=== PATIENT | male | born 1950 | race Caucasian/White ===

== ENCOUNTER 2019-06-17 06:07 | Inpatient (IN) ==
--- NOTE | 2019-05-18 13:22 | PAT Medication Instructions ---
Medication Instructions Date of Service May 18, 2019 Home Medications Metformin 1 tab PO TID Tradjenta 1 tab PO QPM ascorbic acid (vitamin C) [Vitamin C] 1 g PO QAM atorvastatin [Lipitor] 40 mg PO QAM bisoprolol fumarate 7.5 mg PO BID cholecalciferol (vitamin D3) [Vitamin D3] 400 unit PO QAM coQ10 (ubiquinol) 200 mg PO QAM glucos sul [id number] [Glucosamine Chondroitin] 1 cap PO QAM ibuprofen [Advil] 600 mg PO TID PRN magnesium 250 mg PO QAM tamsulosin 0.4 mg PO BID tramadol 50 mg PO BID PRN vitamin E 400 unit PO QAM ASK your surgeon for instructions ibuprofen [Advil] 600 mg PO TID PRN STOP taking 2 weeks before surgery (or as soon as possible if surgery is within 2 weeks) coQ10 (ubiquinol) 200 mg PO QAM glucos sul [id number]-Mn [Glucosamine Chondroitin] 1 cap PO QAM vitamin E 400 unit PO QAM DO NOT take the morning of surgery Metformin 1 tab PO TID ascorbic acid (vitamin C) [Vitamin C] 1 g PO QAM cholecalciferol (vitamin D3) [Vitamin D3] 400 unit PO QAM magnesium 250 mg PO QAM Take morning of surgery With a small sip of water, OTHERWISE NOTHING TO EAT OR DRINK AFTER MIDNIGHT: atorvastatin [Lipitor] 40 mg PO QAM bisoprolol fumarate 7.5 mg PO BID tamsulosin 0.4 mg PO BID tramadol 50 mg PO BID PRN (okay to take up to 4 hours prior to surgery if needed) Take evening before surgery Metformin 1 tab PO TID Tradjenta 1 tab PO QPM bisoprolol fumarate 7.5 mg PO BID tamsulosin 0.4 mg PO BID tramadol 50 mg PO BID PRN (if needed) Other Notes If you have any questions please call us at [phone] or [phone] or [phone] or [phone]
--- NOTE | 2019-05-19 11:29 | Anesthesiology Consultation ---
Date of Service May 19, 2019 Assessment & Plan (1) Encounter for pre-operative examination: PCP clearance 06/09/2019: "EKG reviewed. No significant change from thousand 15. Last echo 10/2014 was good. Stress importance of BS control before and after surgery. ... Patient is cleared for upcoming procedure." Chart Review Chart Review: Acceptable Risk for Surgery and Patient seen in Pre Admission Testing Teaching & Discussion Instructed NPO after midnight before surgery, except medications with 15 cc of water. Medication instructions provided according to the PAT guidelines. History Surgery Operation Date: 06/17/19 10:50 Proposed Procedures p Left Total Knee Arthroplasty - Aram Rock DO Height/Weight Height: 5 ft 10 in Weight: 97.9 kg Allergies Allergy/AdvReac Type Severity Reaction Status Date / Time bee venom protein (honey bee) Allergy Intermediate WATERING Verified 05/11/19 11:05 EYES Penicillins AdvReac Unknown Vomiting Verified 05/11/19 11:05 Medications Home Medications Medication Instructions Recorded Confirmed Last Taken Tradjenta 1 tab PO QPM 05/11/19 05/11/19 Unknown ascorbic acid (vitamin C) [Vitamin 1 g PO QAM 05/11/19 05/11/19 Unknown C] atorvastatin [Lipitor] 40 mg PO QAM 05/11/19 05/11/19 Unknown bisoprolol fumarate 7.5 mg PO BID 05/11/19 05/11/19 Unknown cholecalciferol (vitamin D3) 400 unit PO QAM 05/11/19 05/11/19 Unknown [Vitamin D3] coQ10 (ubiquinol) 100 mg PO QAM 05/11/19 05/19/19 Unknown glucos sul [id number]-Mn 1 cap PO QAM 05/11/19 05/11/19 Unknown [Glucosamine Chondroitin] ibuprofen [Advil] 600 mg PO TID PRN 05/11/19 05/11/19 Unknown magnesium 250 mg PO QAM 05/11/19 05/11/19 Unknown tamsulosin 0.4 mg PO BID 05/11/19 05/11/19 Unknown tramadol 50 mg PO BID PRN 05/11/19 05/11/19 Unknown vitamin E 400 unit PO QAM 05/11/19 05/11/19 Unknown metformin 500 mg PO TID 05/19/19 05/19/19 05/19/19 Past Medical History Medical History Arthritis Bowel obstruction HX X 3 BPH (benign prostatic hyperplasia) Cancer BLADDER. S/P TURBT, last few cystos have been clear per pt. Diabetes mellitus, type 2 History of abdominal aortic aneurysm (AAA) S/P repair ~ 9 yrs ago Stomach ulcer HX Tachycardia Baseline in low 100's, patient asymptomatic. Exercise / Class Metabolic Activity II 4-5 Yardwork/Stairs/Walk up hill (Limited by knee pain, but denies CP or SOB with 1 FOS, lifts weights occ) Past Surgical History Surgical History Fusion of spine X 3-LOWER BACK History of appendectomy History of arthroscopy R/L KNEES History of cholecystectomy History of colonoscopy History of cystoscopy WITH CAUTERIZATION History of detached retina repair R/L History of esophagogastroduodenoscopy (EGD) History of herniorrhaphy X 2 History of repair of rotator cuff R/L S/P AAA (abdominal aortic aneurysm) repair [facility] 8 YRS AGO Past Anesthesia History No Hx of Anesthesia Complications and No Family Hx of Anesthesia Complications History of PONV No Hx of PONV and No Hx of Motion Sickness Social History Smoking Status: Current every day smoker tobacco type: cigarettes Smoking cigarettes per day: 10 CIGS A DAY Do You Dip or Chew Tobacco: No Hx Alcohol Use: Yes Alcohol type: hard liquor alcohol intake frequency: a few times a month Hx Substance Use: No Review of Systems Pt denies any recent chest pain, shortness of breath, palpitations, cough, fever or URI. +abdominal pain/soreness from recent bowel obstruction (seen in ED 05/15, no surgical intervention needed). Physical Exam Vital Signs BP: 104/64 P: 102bpm SPO2: 99% RA T: 97.6 F R: 16 ENMT Mouth: + dental restorations (most teeth are implants a few bridges and very few cachil dehe teeth); no chipped teeth and no loose teeth Thyromental Distance: < 3.5 Finger Breadths (3) Mallampati Class: II Neck normal visual inspection and + facial hair (short goatee); neck extension not limited Respiratory normal respiratory effort Auscultation: lungs clear to auscultation bilaterally Cardiovascular Rate/Rhythm: regular rhythm and + tachycardic Heart Sounds: no murmur Vessels: no carotid bruit Extremities: no edema Testing Laboratory Results Hemoglobin A1c 7.4 % (4.5-5.6) H 05/19/19 11:49 Urine Color Dark Yellow 05/19/19 Unknown Urine Appearance Clear (Clear) 05/19/19 Unknown Urine pH 5.5 (4.5-7.5) 05/19/19 Unknown Ur Specific [place] 1.018 (1.000-1.030) 05/19/19 Unknown Urine Protein Negative (Negative) 05/19/19 Unknown Urine Glucose (UA) Negative (Negative) 05/19/19 Unknown Urine Ketones Negative (Negative) 05/19/19 Unknown Urine Nitrite Negative (Negative) 05/19/19 Unknown Ur Leukocyte Esterase Trace (Negative) H 05/19/19 Unknown Urine WBC (Auto) 5-10 /hpf (0-5) H 05/19/19 Unknown Urine RBC (Auto) 5-10 /hpf (0-4) H 05/19/19 Unknown U Hyaline Cast (Auto) 1-5 /lpf (0-5) 05/19/19 Unknown U Epithel Cells (Auto) 5-10 /lpf (0-5) H 05/19/19 Unknown Urine Bacteria (Auto) Negative (Negative) 05/19/19 Unknown Blood Type A Positive 05/19/19 11:49 Antibody Screen NEGATIVE 05/19/19 11:49 05/16/19 WBC: 6.4 H/H: 14.6/45.9 PLATELETS: 211 SODIUM: 140 POTASSIUM: 4.2 CHLORIDE: 103 CO2: 27 BUN: 43 CREATININE: 1.0 GLUCOSE: 207 05/15/19 PT: 10.9 PTT: 31.1 INR: 0.9 Electrocardiogram Date: 05/15/19 Findings: + NSR @ (97bpm) Low QRS voltage in extremity leads. Pattern consistent with pulmonary disease. Left anterior fascicular block. Possible inferior myocardial infarction, probably old. Chest X-Ray Date: 05/19/19 Findings: + NAD Echocardiogram Date: 06/07/14 EF: 65-70% Indication: abnormal pre-op EKG. Normal biventricular function. No significant valvular disease. Mild concentric LVH with grade 1 diastolic dysfunction.
--- NOTE | 2019-05-19 12:13 | XRay Report ---
XR chest Pre-admission PA/Lat CLINICAL HISTORY: pat preoperative evaluation COMPARISON STUDY: No previous studies for comparison. FINDINGS: The bones soft tissues and hemidiaphragms are normal. The cardiomediastinal silhouette is n ormal. The lungs are clear. The pulmonary vasculature is normal. IMPRESSION: Negative chest. ACT 112: Negative or not required by law. The above report was generated using voice recognition software. It may contain grammatical, syntax or spelling errors. Electronically signed by: Rafat Centeno M.D. 05/19/2019 12:11 PM
[2019-05-19 13:18] LABS: Estimated Average Glucose 166 mg/dl; Hemoglobin A1C 7.4 % (4.5-5.6)
[2019-05-19 13:24] LABS: Appearance Urine Clear (Clear); Bacteria Urine Automated Negative (Negative); Bilirubin Urine Negative (Negative); Blood Urine Negative (Negative); Color Urine Dark Yellow; Glucose Urine UA Negative (Negative); Ketones Urine Negative (Negative); Leukocyte Esterase Urine Trace (Negative); Nitrite Urine Negative (Negative); Protein Urine Negative (Negative); Specific Gravity Urine 1.018 (1.000-1.030); Urobilinogen Urine Negative (Negative); pH Urine 5.5 (4.5-7.5)
--- NOTE | 2019-06-16 10:22 | History & Physical Report ---
Date of Service June 16, 2019 Assessment & Plan (1) Osteoarthritis of left knee: Schedule a left TKA for 06.17.2019. All potential risks, benefits, complications, alternatives, and rehab have been discussed with the patient and he wishes to proceed. ASA 81 mg BID x 30 days for DVT prophylaxis. Plan for home with home health upon d/c. (2) Genu varum of left lower extremity: History of Present Illness Chief Complaint: left knee pain Primary Care Provider: Cameron Khan This is a patient with a multi-year hx of left knee pain. He was treated conservatively but knee DJD but has failed conservative management. His varus deformity has also been worsening. He is now being set up for TKA. Allergies Allergy/AdvReac Type Severity Reaction Status Date / Time bee venom protein (honey bee) Allergy Intermediate WATERING Verified 05/11/19 11:05 EYES Penicillins AdvReac Unknown Vomiting Verified 05/11/19 11:05 Home Medications Home Medications Medication Instructions Recorded Confirmed Type Tradjenta 1 tab PO QPM 05/11/19 05/11/19 History ascorbic acid (vitamin C) [Vitamin 1 g PO QAM 05/11/19 05/11/19 History C] atorvastatin [Lipitor] 40 mg PO QAM 05/11/19 05/11/19 History bisoprolol fumarate 7.5 mg PO BID 05/11/19 05/11/19 History cholecalciferol (vitamin D3) 400 unit PO QAM 05/11/19 05/11/19 History [Vitamin D3] coQ10 (ubiquinol) 100 mg PO QAM 05/11/19 05/19/19 History glucos sul [id number]-Mn 1 cap PO QAM 05/11/19 05/11/19 History [Glucosamine Chondroitin] ibuprofen [Advil] 600 mg PO TID PRN 05/11/19 05/11/19 History magnesium 250 mg PO QAM 05/11/19 05/11/19 History tamsulosin 0.4 mg PO BID 05/11/19 05/11/19 History tramadol 50 mg PO BID PRN 05/11/19 05/11/19 History vitamin E 400 unit PO QAM 05/11/19 05/11/19 History metformin 500 mg PO TID 05/19/19 05/19/19 History Past Med/Surg History Medical History Arthritis Bowel obstruction HX X 3 BPH (benign prostatic hyperplasia) Cancer BLADDER. S/P TURBT, last few cystos have been clear per pt. Diabetes mellitus, type 2 History of abdominal aortic aneurysm (AAA) S/P repair ~ 9 yrs ago Stomach ulcer HX Tachycardia Baseline in low 100's, patient asymptomatic. 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 Beliefs That Will Affect Care: None Current Living Situation: Spouse Other Information That Helps Us Care for You: No Feels Safe at Home: Yes Safety Concerns: Feels Safe At This Time Smoking Status: Current every day smoker Tobacco Type: cigarettes ; Cigarettes Per Day: 10 CIGS A DAY ; Do You Dip or Chew Tobacco: No ; Second Hand Exposure: No ; Hx Alcohol Use: Yes Alcohol type: hard liquor Hx Substance Use: No Physical Exam Constitutional: well developed and well nourished; no acute distress ENMT: external ear and nose normal, oropharynx normal Neck: trachea midline, no thyromegaly Respiratory: normal respiratory effort, lungs clear to auscultation Cardiovascular: Rate/Rhythm: regular rate and regular rhythm Gastrointestinal (Abdomen): normal bowel sounds, soft, nontender, no hepatosplenomegaly Musculoskeletal: Gait: + antalgic gait (left) Knee: + effusion (mild to moderate left), + joint line tenderness (left medial joint line), + varus alignment (left knee) and + Katerine's sign positive; no skin erythema, no ecchymosis and no surgical incision Skin: no rashes, warm and dry Neurologic: normal touch/pain/proprioception Psychiatric: A+Ox3, euthymic affect Lymphatic: no cervical or axillary lymphadenopathy
[~2019-06-17 06:07] MED LIST: ACETAMINOPHEN 500 MG TAB PO SCH; CeleBREX 200 MG CAP PO SCH; FAMOTIDINE 20 MG TAB PO SCH; GABAPENTIN 300 MG CAP PO SCH; LR 500ML BOLUS, THEN 15ML/HR IV SCH; METOCLOPRAMIDE HCL 10 MG TABLET PO SCH; ROPIVACAINE 0.5% HCL/PF 150 MG, BUPIVACAINE 0.5% MPF 30 ML, EPINEPHrine 30MG/30ML (OR U... INSTIL SCH; VANCOMYCIN HCL 1,500 MG in SODIUM CHLORIDE 0.9% 500 ML IV SCH; dexAMETHasone 4 MG TAB PO SCH
[2019-06-17] MEDS ORDERED: BUPIVACAINE 0.5 % 5 MG/1 ML PF 10ML VIAL ONE (06:18)
--- NOTE | 2019-06-17 07:36 | History & Physical Bridge Note ---
Date of Service June 17, 2019 History & Physical Bridge Note I have examined the patient, reviewed the History & Physical and in the interval since the performance of the History & Physical I have noted the following changes of clinical significance: no changes noted
[2019-06-17] MEDS ORDERED: PROPOFOL IV EMULSION 10 MG/ML 20 ML VIAL IV ONE ×3 (08:01→10:15)
[2019-06-17] MEDS ORDERED: fentaNYL citrate 100 MCG/2 ML VIAL ONE (08:01)
[2019-06-17] MEDS ORDERED: MIDAZOLAM HCL 1 MG/ML 2ML VIAL ONE ×3 (08:01→11:18)
[2019-06-17] MEDS ORDERED: fentaNYL citrate 100 MCG/2 ML VIAL IV PRN (08:18)
[2019-06-17] MEDS ORDERED: ONDANSETRON INJ 2 MG/ML 2 ML VIAL IV PRN ×2 (08:18→13:17)
[2019-06-17] MEDS ORDERED: ePHEDrine sulfate 50 MG/ML AMP IV PRN (08:18)
[2019-06-17] MEDS ORDERED: ATROPINE SULFATE 0.1 MG/ML 10ML SYR IV PRN (08:18)
[2019-06-17] MEDS ORDERED: ORTHO JOINT ANESTHETIC ONE (09:16)
[2019-06-17] MEDS ORDERED: BACITRACIN INJ 50,000 UNIT VIAL ONE (09:16)
--- NOTE | 2019-06-17 11:42 | Post Operative Brief Note ---
Immediate Post Op Note v1 Date of Surgery June 17, 2019 Pre & Post Diagnosis Operation Date: 06/17/19 09:00 Pre-Op Diagnosis: Left Knee Osteoarthritis, genu varum, left knee pain Post-Op Diagnosis: Left Knee Osteoarthritis, genu varum, left knee pain I identified the patient and participated in the time-out.: Yes Procedure Operation Date: 06/17/19 09:00 Actual Procedures p Left Total Knee Arthroplasty with Gupta & Nephew MRI matched total knee arthroplasty components femur #7, tibia #6, patellar number 35 mm, posterior stabilized polyethylene 10 mm (Left) - Aram Rock DO Surgeon Aram Rock DO Cattle Tester Miles Henriquez PA-C Estimated Blood Loss 10 Findings Consistent with Post-Op Diagnosis Specimens Bone and tissue left knee Drains Hemovac Drain (dual) Anesthesia Type MAC Spinal Regional Complications none Disposition Accompanied Patient To Recovery: No Disposition: Recovery Room
--- NOTE | 2019-06-17 12:12 | Operative Report ---
DATE OF OPERATION: 06/17/2019 PREOPERATIVE DIAGNOSES: 1. Left knee degenerative joint disease. 2. Osteoarthritis, left knee. 3. Genu varum. 4. Left knee pain. POSTOPERATIVE DIAGNOSES: 1. Left knee degenerative joint disease. 2. Osteoarthritis, left knee. 3. Genu varum. 4. Left knee pain. PROCEDURE: Left total knee arthroplasty using a Gupta and Nephew MRI matched arthroplasty components, size 7 femur, size 6 tibia, 10 mm posterior stabilized polyethylene and a 35 mm patella. SURGEON: Aram Rock DO. TRUER PINION AND WHEEL: Miles Henriquez PA-C who was present for patient positioning, sterile prep and drape, management of retractors and instruments. He was present through the critical portions of the case including wound closure, application of sterile dressing and transport of the patient to recovery. ANESTHESIA: MAC, spinal, regional. SPECIMENS: Bone and tissue of left knee. DRAINS: Hemovac x2. COMPLICATIONS: None. BLOOD LOSS: 10 mL. PERTINENT HISTORY: This is a 69-year-old gentleman who has had progressive chronic and worsening left knee pain over the last 4-5 years. He attempted and failed conservative management including use of a brace, use of an assistive device, modification of activities, rest, observation, physician-directed home exercises, physical therapy with modalities, steroid injection and viscosupplementation. Radiographs demonstrate genu varum with medial joint space collapse, loss of medial joint space, marginal osteophytes, subchondral sclerosis and subchondral cysts. The patient was then scheduled for surgery as indicated. All potential risks, benefits, complications, alternatives, rehab potential for incomplete relief of symptoms, need for further surgery, DVT, PE, , persistent pain, swelling, scarring, weakness, neurovascular injury, wound complications, hardware failure, nonunion, malunion, bone fracture were discussed with the patient. The patient decided to proceed with the procedure as indicated. PROCEDURE DESCRIPTION: The patient was taken to the Operating Suite and placed supine on the Operating Room table after the patient had been administered spinal epidural anesthetic and femoral nerve sheath catheter in the preop holding area. The patient was sedated. Proper operative site was identified. The tourniquet was placed high on the left lower extremity. Left lower extremity was then sterilely prepped and draped in the usual fashion. Elevated and exsanguinated with an Esmarch bandage. Tourniquet inflated to 350 mmHg. Next, a midline 10-blade scalpel incision was made directly over the middle one-third of the patella extending to the level of the tibial tubercle. The incision was deepened through the subcutaneous tissue and meticulous hemostasis with electrocautery. Full-thickness skin flaps were developed taking care to avoid neurovascular bundles. Next, median parapatellar capsular incision was made 10-blade scalpel after the superior medial corner had been marked with a marking pen for later reapproximation. Next, patella was everted. Soft tissue releases were performed of the knee including along the anterior medial corner to the level of the MCL which was protected and released adjacent to the MCL with Phelps elevator. Fat pad was resected anteriorly and small half rodriguez portion of tissue was resected at the superior margin of the dermal articular surface. Next, the patella thickness was measured with caliper and held in everted position with Noelle. Next, sagittal saw was used to make orthogonal cuts to the level of the patellar nose. Caliper was used to remeasure the patella and the appropriate sized patellar button, in this case size 35 mm was felt to be most appropriate. The alignment guide was then put in place. Peg holes were drilled and alignment guide was then removed. Next, the femoral cutting block was placed in the distal aspect of the femur and pinned in place. Next the distal femoral cut was made based off the patient's anatomy and MRI patient matched cutting block. Next, a size 7 distal 4-in-1 cutting block was tamped in place then stabilized with pins. Next, the appropriate soft tissue retraction was made and anterior chamfer and posterior chamfer cuts were made with the sagittal saw. Next, the 4-in-1 cutting block was then removed followed by removal of all bone fragments. Next, attention was then directed toward the proximal tibia. Blunt Sugar was placed posterior to the tibia to protract it anteriorly and median and lateral sharp Sugar retractors were placed. Soft tissue and portion of the menisci were then resected at this time and MRI matched proximal tibial cutting block was then pinned in place and proximal tibial cut was made with sagittal saw. Alignment guide was removed. Pins were removed and the proximal fragment of the tibia was then sharply excised and removed. Next, proximal tibial tray trial size 6 was then pinned in place and this was felt to be well matched for the patient's anatomy, pinned in place and keel punch was then utilized with mallet. Keel punch was then removed and cervical laminar director housekeeping was then placed in the medial compartment. The lateral compartment was then inspected for osteophytes and soft tissue impingement. There was found to be none. I then switched to the lateral compartment and medial compartment was then debrided of any soft tissue impingement. Next the laminar director housekeeping was removed and the femoral trial, in this case size 7 was then malleted in place, pinned and then femoral notch milling guide was then placed anteriorly. This was then reamed and then punched with sharp punch and mallet. Next, the distal aspect of the femur was then inserted in notch guide and size 10 mm posterior stabilized poly was inserted, reduced. Patellar button was then placed in trial and range of motion was performed. Next after range of motion and stability test was performed the implants were found to be appropriate size. Trials were all removed. The posterior capsule was injected with Orthomix. Next, the joint was then cleansed with pulsatile lavage using approximately 3 liters normal saline with Bacitracin additive. Next, all bony surfaces were suctioned and drained and standard cementing technique was performed with and all excess cement was then removed from around the implant site. A 10 mm posterior stabilized polyethylene bearing was implanted and checked for stability. The patellar button was then cemented in place and held in place with patellar clamp. Next, double lumen 10 Nepali Hemovac drain was then placed and exiting anterolaterally and the capsule was closed using interrupted #1 Vicryl sutures. The dermis was closed using buried interrupted 2-0 Vicryl and the skin closed with skin chano. A sterile compressive dressing was applied from the toes to the groin and overwrapped with French wrap. Tourniquet was released. The patient was awakened and taken to recovery in stable condition. I attest to the content of the Intraoperative Record and any orders documented therein. Any exception s are noted below.
--- NOTE | 2019-06-17 12:44 | Anesthesiology Progress Note ---
Date of Service June 17, 2019 Anesthesia Post Procedure Vital Signs Vital Signs: Temp Pulse Pulse Resp BP Pulse Ox 06/17/19 12:35 97.9 F 79 16 94/55 L 95 06/17/19 12:25 80 16 116/77 95 06/17/19 12:19 97.3 F L 80 16 111/75 96 06/17/19 06:31 98.1 F 85 18 150/95 H 97 Pain Intensity Left Knee: Pain Intensity: 4 Transfer of Care Handoff Completed per policy Notes Mental Status: alert / awake / arousable and participated in evaluation Patient Amnestic to Procedure: Yes Nausea / Vomiting: adequately controlled Pain: adequately controlled Airway Patency, RR, SpO2: stable & adequate BP & HR: stable & adequate Hydration State: stable & adequate Neuraxial Anesthesia: was administered and sensory block is resolving Anesthetic Complications: no major complications apparent and Pt Satisfied with anesthetic care
--- NOTE | 2019-06-17 13:16 | XRay Report ---
LEFT KNEE 2 VIEWS History: Left total knee arthroplasty. Degenerative arthritis. Postop. FINDINGS: The patient is status post a left total knee arthroplasty. The hardware is intact. No fract ure or dislocation. Skin chano and surgical drains are in place. IMPRESSION: Left total knee arthroplasty. No evidence for hardware complication. ACT 112: Negative or not required by law. Electronically signed by: Avery Wells M.D. 06/17/2019 1:14 PM
[2019-06-17] MEDS ORDERED: TRAMADOL HCL 50 MG TABLET PO PRN (13:17)
[2019-06-17] MEDS ORDERED: METOCLOPRAMIDE HCL INJ 5 MG/ML 2 ML VIAL IV PRN (13:17)
[2019-06-17] MEDS ORDERED: VANCOMYCIN CONSULT ACTIVE PRN (13:17)
[2019-06-17] MEDS ORDERED: NALOXONE HCL 0.4 MG/1 ML VIAL/CARP IV PRN (13:17)
[2019-06-17] MEDS ORDERED: bisacodyL 10 MG SUPP PR PRN (13:17)
[2019-06-17] MEDS ORDERED: HYDROmorphone INJ 0.5 MG/0.5 ML SYR IV PRN (13:17)
[2019-06-17] MEDS ORDERED: ALUMINUM/MAGNESIUM SUSP 30 ML UDC PO PRN (13:17)
[2019-06-17] MEDS ORDERED: MAGNESIUM HYDROXIDE SUSP 30 ML UDC PO PRN (13:17)
[2019-06-17] MEDS ORDERED: SODIUM CHLORIDE 0.9% 1000ML 1,000 ML IV SCH (14:00)
[2019-06-17] MEDS: ACETAMINOPHEN 500 MG TAB PO SCH ×2 (15:04→22:58)
[2019-06-17] MEDS: KETOROLAC TROMETHAMINE 15 MG/ML VIAL IV SCH ×2 (15:04→20:15)
--- NOTE | 2019-06-17 17:11 | Hospitalist Consultation ---
Date of Consultation June 17, 2019 Assessment & Plan (1) Post-operative state: s/p total knee 06/18 Pain control, dvt proph per primary Monitor for acute blood loss (2) Diabetes mellitus, type 2: bsgs ac & hs Continue home metformin, linagliptin (3) BPH (benign prostatic hyperplasia): Continue tamsulosin (4) Tachycardia: Continue bisoprolol (5) Hyperlipemia: Continue atorvastatin History of Present Illness Attending Physician: Aram Rock, History of Present Illness S/p TKA today. Feeling well, no complaints. 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 Family: Mother at 94, fatehr of emphysema Allergies Allergy/AdvReac Type Severity Reaction Status Date / Time bee venom protein (honey bee) Allergy Intermediate WATERING Verified 06/17/19 06:28 EYES Penicillins AdvReac Unknown Vomiting Verified 06/17/19 06:28 Home Medications Home Medications Medication Instructions Recorded Confirmed Type Tradjenta 1 tab PO QPM 05/11/19 06/17/19 History ascorbic acid (vitamin C) [Vitamin 1 g PO QAM 05/11/19 06/17/19 History C] atorvastatin [Lipitor] 40 mg PO QAM 05/11/19 06/17/19 History bisoprolol fumarate 7.5 mg PO BID 05/11/19 06/17/19 History cholecalciferol (vitamin D3) 400 unit PO QAM 05/11/19 06/17/19 History [Vitamin D3] coQ10 (ubiquinol) 100 mg PO QAM 05/11/19 06/17/19 History glucos sul [id number] 1 cap PO QAM 05/11/19 06/17/19 History [Glucosamine Chondroitin] ibuprofen [Advil] 600 mg PO TID PRN 05/11/19 06/17/19 History magnesium 250 mg PO QAM 05/11/19 06/17/19 History tamsulosin 0.4 mg PO BID 05/11/19 06/17/19 History tramadol 50 mg PO BID PRN 05/11/19 06/17/19 History vitamin E 400 unit PO QAM 05/11/19 06/17/19 History metformin 500 mg PO TID 05/19/19 06/17/19 History acetaminophen 1,000 mg PO Q8H #100 tab 06/17/19 Rx aspirin 81 mg PO BID #60 tab 06/17/19 Rx celecoxib [Celebrex] 200 mg PO BID #60 cap 06/17/19 Rx oxycodone 5 - 10 mg PO Q4H PRN #30 cap 06/17/19 Rx Patient History Medical History Arthritis Bowel obstruction HX X 3 BPH (benign prostatic hyperplasia) Cancer BLADDER. S/P TURBT, last few cystos have been clear per pt. Diabetes mellitus, type 2 History of abdominal aortic aneurysm (AAA) S/P repair ~ 9 yrs ago Stomach ulcer HX Tachycardia Baseline in low 100's, patient asymptomatic. Surgical History Fusion of spine X 3-LOWER BACK History of appendectomy History of arthroscopy R/L KNEES History of cholecystectomy History of colonoscopy History of cystoscopy WITH CAUTERIZATION History of detached retina repair R/L History of esophagogastroduodenoscopy (EGD) History of herniorrhaphy X 2 History of repair of rotator cuff R/L S/P AAA (abdominal aortic aneurysm) repair [facility] 8 YRS AGO Social History Preferred Language: Ken[place] Communication Ability: Effective Computer Help Desk Representative Required: No Beliefs That Will Affect Care: None marital status: Current Living Situation: Spouse Other Information That Helps Us Care for You: No Feels Safe at Home: Yes Safety Concerns: Feels Safe At This Time Smoking Status: Current every day smoker Tobacco Type: cigarettes ; Cigarettes Per Day: 10 CIGS A DAY ; Do You Dip or Chew Tobacco: No ; Second Hand Exposure: No ; Hx Alcohol Use: Yes Alcohol type: hard liquor Hx Substance Use: No Review of Systems Constitutional: no fever, no chills and no body aches Respiratory: no cough and no dyspnea Cardiovascular: no chest pain and no palpitations Gastrointestinal: no abdominal pain, no nausea, no vomiting, no constipation and no diarrhea/loose stools Genitourinary: no dysuria and no difficulty urinating Musculoskeletal: no joint pain Integumentary: no rash Physical Exam Physical Exam: General: no distress Eyes: normal inspection, PERLL Respiratory: chest non tender, clear to auscultation, normal breath sounds, no respiratory distress, no accessory muscle use Cardiac: regular rate and rhythm, no rub or gallop, no murmur, no edema, no jvd GI/: active bowel sounds, no abd pain or tenderness, soft, non distended Extremities: normal range of motion, normal strength, non tender Neuro/Psych: alert and oriented x 3, normal mood and affect Skin: normal color, dry Results & Data ([facility]) Vital Signs (Past 12 Hours) Vital Signs Temp Pulse Pulse Resp BP Pulse Ox 06/17/19 16:15 36.9 C 79 16 115/69 95 06/17/19 15:15 36.5 C 78 16 142/77 H 96 06/17/19 14:12 74 16 125/80 93 06/17/19 13:47 79 16 121/73 94 06/17/19 13:00 75 16 110/64 95 06/17/19 12:45 78 16 125/74 95 06/17/19 12:35 36.6 C 79 16 94/55 L 95 06/17/19 12:25 80 16 116/77 95 06/17/19 12:19 36.3 C L 80 16 111/75 96 06/17/19 06:31 36.7 C 85 18 150/95 H 97 PG Care Time/CCT Total # of Minutes Spent Total Time Spent with Patient: Total time spent is greater than 50% in coordination of care (as documented) at patient's floor/unit and/or counseling patient: Coding Level of Care Code 28729 Inpt Consult Level 4 Diagnoses Post-operative state Z98.890 Diabetes mellitus, type 2 E11.9 BPH (benign prostatic hyperplasia) N40.0 Tachycardia R00.0 Hyperlipemia E78.5
[2019-06-17] MEDS: METFORMIN HCL 500 MG TAB PO SCH (17:20)
[2019-06-17] MEDS ORDERED: TRANEXAMIC ACID / 0.7% NACL 1,000 MG/100 ML BAG IV SCH (18:30)
[2019-06-17] MEDS ORDERED: VANCOMYCIN HCL 1,500 MG in SODIUM CHLORIDE 0.9% 500 ML IV SCH (19:00)
[2019-06-17] MEDS: BISOPROLOL FUMARATE PO SCH (20:15)
[2019-06-17] MEDS: TAMSULOSIN HCL 0.4 MG CAP PO SCH (20:15)
[2019-06-17] MEDS: ASPIRIN 81 MG ECTAB PO SCH (20:15)
[2019-06-17] MEDS: DOCUSATE SODIUM 100 MG CAP PO SCH (20:15)
[2019-06-17] MEDS ORDERED: SENNA 8.6 MG TAB PO SCH (21:00)
[2019-06-18] MEDS: KETOROLAC TROMETHAMINE 15 MG/ML VIAL IV SCH ×2 (01:52→08:38)
[2019-06-18] MEDS: OXYCODONE HCL IR 5 MG TAB (IMMEDIATE RELEASE) PO PRN ×2 (05:27→11:22)
[2019-06-18] MEDS: ACETAMINOPHEN 500 MG TAB PO SCH (05:28)
[2019-06-18 06:00] LABS: Hematocrit (blood only) 36.9 % (42-52); Mean Corpuscular Hemoglobin 29.8 pg (25-34); Mean Corpuscular Hgb Conc 32.5 g/dL (32-36); Mean Corpuscular Volume 91.6 fL (80-100); Mean Platelet Volume 9.9 fL (7.4-10.4); Platelet Count 257 K/uL (130-400); RDW Coefficient of Variation 12.7 % (11.5-14.5); RDW Standard Deviation 42.5 fL (36.4-46.3); Red Blood Count 4.03 M/uL (4.7-6.1); White Blood Count 15.85 K/uL (4.8-10.8)
--- NOTE | 2019-06-18 06:05 | Orthopedic Progress Note ---
Date of Service June 18, 2019 Assessment & Plan (1) History of total left knee replacement: POD #1 s/p Left TKA pt/ot dvt proph with MERLYN/SCD/ASA plan for d/c home with HHPT after PT today. Admission and Anticipated Discharge Date Admission Date: June 17, 2019 Subjective POD #1 s/p Left TKA Review of Systems Constitutional: no fever, no chills and no sweats Respiratory: no cough and no dyspnea Cardiovascular: no chest pain and no dyspnea Gastrointestinal: no abdominal pain, no nausea and no vomiting Physical Exam Physical Exam: Vital Signs Temp 36.5 C 06/18/19 03:43 Pulse 80 06/18/19 03:43 Resp 18 06/18/19 03:43 BP 130/72 06/18/19 03:43 Pulse Ox 96 06/18/19 03:43 Intake & Output 06/17/19 06/17/19 06/18/19 06:59 18:59 06:59 Intake Total 2130 / 3980 1850 / 3980 Output Total 1035 / 1615 580 / 1615 Balance 1095 / 2365 1270 / 2365 Weight 92.986 kg 92.986 kg Intake: IV 1430 / 2780 1350 / 2780 Lr 1,000 ml @ 15 mls/hr IV . 900 / 900 Q24H [facility] Rx#:[id number] Nss 1000ML 1,0 00 ml @ 100 mls/ 720 / 720 hr IV .Q10H SC H Rx#:[id number] TRANEXAMIC ACI D / 0.7% NACL 1, 100 / 100 000 mg In 100 ml @ 600 mls/hr IV Q6H [facility] Rx# :[id number] Vancomycin HCl 1,500 mg In Nss 530 / 1060 530 / 1060 500 ml @ 200 m ls/hr IV Q12H [facility] Rx#:[id number] IV Perioperative 700 / 700 Oral 500 / 500 Output: Urine 425 / 725 300 / 725 Estimated Blood Loss 10 / 10 Drain Output 600 / 880 280 / 880 Left Knee Hemo vac 600 / 880 280 / 880 Other: # Unmeasured Voi ds 1 Constitutional: WD/WN, vitals as above no acute distress Musculoskeletal: Left Leg: NVDI, calf SNT, negative dedrick sign. DP palpable, able to wiggle toes/ankle movement without difficulty. dressing clean dry and intact. Results & Data ([facility]) Vital Signs (Past 12 Hours) Vital Signs Temp Pulse Resp BP BP Pulse Ox 06/18/19 03:43 36.5 C 80 18 130/72 96 06/17/19 23:15 36.8 C 81 18 134/77 92 06/17/19 20:12 84 113/69 06/17/19 19:16 36.8 C 84 16 103/61 94 Laboratory Results Laboratory Results WBC 15.85 K/uL (4.8-10.8) H 06/18/19 05:06 RBC 4.03 M/uL (4.7-6.1) L 06/18/19 05:06 Hgb 12.0 g/dL (14.0-18.0) L 06/18/19 05:06 Hct 36.9 % (42-52) L 06/18/19 05:06 MCV 91.6 fL (80-100) 06/18/19 05:06 MCH 29.8 pg (25-34) 06/18/19 05:06 MCHC 32.5 g/dL (32-36) 06/18/19 05:06 RDW Std Deviation 42.5 fL (36.4-46.3) 06/18/19 05:06 RDW Coeff of Dania 12.7 % (11.5-14.5) 06/18/19 05:06 Plt Count 257 K/uL (130-400) 06/18/19 05:06 MPV 9.9 fL (7.4-10.4) 06/18/19 05:06 POC Glucose 284 mg/dl (70-99) H 06/17/19 21:01 Estimat Average Glucose 166 mg/dl 05/19/19 11:49 Hemoglobin A1c 7.4 % (4.5-5.6) H 05/19/19 11:49 Urine Color Dark Yellow 05/19/19 Unknown Urine Appearance Clear (Clear) 05/19/19 Unknown Urine pH 5.5 (4.5-7.5) 05/19/19 Unknown Ur Specific [place] 1.018 (1.000-1.030) 05/19/19 Unknown Urine Protein Negative (Negative) 05/19/19 Unknown Urine Glucose (UA) Negative (Negative) 05/19/19 Unknown Urine Ketones Negative (Negative) 05/19/19 Unknown Urine Blood Negative (Negative) 05/19/19 Unknown Urine Nitrite Negative (Negative) 05/19/19 Unknown Urine Bilirubin Negative (Negative) 05/19/19 Unknown Urine Urobilinogen Negative (Negative) 05/19/19 Unknown Ur Leukocyte Esterase Trace (Negative) H 05/19/19 Unknown Urine WBC (Auto) 5-10 /hpf (0-5) H 05/19/19 Unknown Urine RBC (Auto) 5-10 /hpf (0-4) H 05/19/19 Unknown U Hyaline Cast (Auto) 1-5 /lpf (0-5) 05/19/19 Unknown U Epithel Cells (Auto) 5-10 /lpf (0-5) H 05/19/19 Unknown Urine Bacteria (Auto) Negative (Negative) 05/19/19 Unknown Blood Type A Positive 05/19/19 11:49 Antibody Screen NEGATIVE 05/19/19 11:49 Diagnostic Findings LEFT KNEE 2 VIEWS History: Left total knee arthroplasty. Degenerative arthritis. Postop. FINDINGS: The patient is status post a left total knee arthroplasty. The hardware is intact. No fracture or dislocation. Skin chano and surgical drains are in place. IMPRESSION: Left total knee arthroplasty. No evidence for hardware complication.
[2019-06-18 06:34] LABS: BUN Creatinine Ratio 30.1 (10-20); Calcium 8.5 mg/dl (8.5-10.1); Creatinine Clr Calc Pharmacy 99.7 ml/min; Est GFR (African American) 105.4; Potassium 4.5 mmol/L (3.5-5.1)
[2019-06-18] MEDS: METFORMIN HCL 500 MG TAB PO SCH (08:37)
[2019-06-18] MEDS: DOCUSATE SODIUM 100 MG CAP PO SCH (08:39)
[2019-06-18] MEDS: TAMSULOSIN HCL 0.4 MG CAP PO SCH (08:39)
[2019-06-18] MEDS: ASPIRIN 81 MG ECTAB PO SCH (08:39)
[2019-06-18] MEDS: BISOPROLOL FUMARATE PO SCH (08:41)
[2019-06-18] MEDS ORDERED: ATORVASTATIN 40 MG TAB PO SCH (09:00)
[2019-06-18] MEDS ORDERED: CHOLECALCIFEROL (VITAMIN D) 400 UNITS TABLET PO SCH (09:00)
[2019-06-18] MEDS ORDERED: ASCORBIC ACID 500 MG TAB PO SCH (09:00)
[2019-06-18] MEDS ORDERED: TOCOPHERYL, DL-ALPHA 400 UNITS CAP PO SCH (09:00)
[2019-06-18] MEDS ORDERED: NON-FORMULARY MEDICATION (Glucos Sul 2kcl-Msm-Chond-C-Mn [Glucosamine Chondroitin] 1 CAP) PO SCH (09:00)
[2019-06-18] MEDS ORDERED: MULTIVITAMIN TAB PO SCH (09:00)
[2019-06-18] MEDS ORDERED: MAGNESIUM OXIDE 400 MG TAB PO SCH (09:00)
[2019-06-18] MEDS ORDERED: NON-FORMULARY MEDICATION (Coq10 (Ubiquinol) 100 MG) PO SCH (09:00)
--- NOTE | 2019-06-18 10:49 | Hospitalist Progress Note ---
Date of Service June 18, 2019 Assessment & Plan (1) Post-operative state: s/p total knee 06/18 Pain control, dvt proph per primary Hgb 12 however I do not see a baseline hgb to compare (2) Diabetes mellitus, type 2: bsgs ac & hs Continue home metformin, linagliptin BSGs have been somewhat elevated, A1c in April was 7.4 (3) BPH (benign prostatic hyperplasia): Continue tamsulosin (4) Tachycardia: Continue bisoprolol Heart rates have been stable wnl (5) Hyperlipemia: Continue atorvastatin Mr. Avitia is medically stable for discharge. Please call with any questions or concerns Admission and Anticipated Discharge Date Admission Date: June 17, 2019 Supervising Physician Co-Signing Physician Notes I supervised Ninoska Villegas NP on this patient's care. I examined the patient today independently of her. I discussed the plan of care with her with the plan being as written in her note except for any following changes/exceptions: None. Doing well. Up and around. Discharge is in from the primary team. Subjective Mr. Avitia feels well today, no complaints, eager for discharge. ROS Constitutional: no chills, aches, sweats or fever Respiratory: no sob,cough, sputum, or wheezing Cardiac: no chest pain, palpitations, edema, orthopnea or lightheadedness GI: no abdominal pain, nausea, vomiting, diarrhea or constipation : no dysuria or hesitancy Extremities: no joint pain or weakness Skin: no rash All other systems reviewed and negative Physical Exam Physical Exam: General: no distress Eyes: normal inspection, PERLL Respiratory: chest non tender, clear to auscultation, normal breath sounds, no respiratory distress, no accessory muscle use Cardiac: regular rate and rhythm, no rub or gallop, no murmur, no edema, no jvd GI/: active bowel sounds, no abd pain or tenderness, soft, non distended Extremities: normal range of motion, normal strength, non tender Neuro/Psych: alert and oriented x 3, normal mood and affect Skin: normal color, dry Results & Data ([facility]) Vital Signs (Past 12 Hours) Vital Signs Temp Pulse Pulse Resp BP BP Pulse Ox 06/18/19 09:19 36.4 C L 71 80 16 124/65 113/69 98 06/18/19 07:31 36.4 C L 71 16 124/65 98 06/18/19 03:43 36.5 C 80 18 130/72 96 06/17/19 23:15 36.8 C 81 18 134/77 92 PG Care Time/CCT Total # of Minutes Spent Total Time Spent with Patient: Total time spent is greater than 50% in coordination of care (as documented) at patient's floor/unit and/or counseling patient: Coding Level of Care Code 77258 Subseq Hosp Care Lvl 2 Diagnoses Post-operative state Z98.890 Diabetes mellitus, type 2 E11.9 BPH (benign prostatic hyperplasia) N40.0 Tachycardia R00.0 Hyperlipemia E78.5
[2019-06-18] MEDS ORDERED: LINAGLIPTIN 5 MG PO SCH (12:00)
[2019-06-19] MEDS ORDERED: CeleBREX 200 MG CAP PO SCH (21:00)
== END 2019-06-18 12:04 | disposition home health service (06) | DRG 470 ==
LOC: ASU 06:07 → 3E 12:30